=== PATIENT | female | born 1985 | race Caucasian/White ===

== ENCOUNTER 2016-10-26 10:24 | Emergency (ER) | payer OTHER ==
[2016-10-26 10:34] VITALS: PULSE 77; TEMP 98.1
--- NOTE | 2016-10-26 10:47 | ED PDOC ---
Arrival/HPI - General Chief Complaint: Male Genitourinary Time Seen by Provider: 10/26/16 10:26 Historian: Patient - History of Present Illness Narrative History of Present Illness (Text): 10/26/16 10:38 31 y/o female, pmh including ectopic , nkda, LMP 08/2016, c/o absent period x 1 month with possible with no pain. Pt. stated that she's been feeling nauseous with no vomiting this week along with delayed period , concerning that she is but not sure, no vaginal bleeding or discharge , no pelvic or abdominal pain, no headache or night sweat, no urinary symptoms, no weight loss, no numbness or tingling, no other medical or psychological complaints. Past Medical History - Provider Review Nursing Documentation Reviewed: Yes - Infectious Disease Hx of Infectious Diseases: None - Reproductive Menopause: No - Psychiatric Hx Substance Use: No - Anesthesia Hx Anesthesia: No Family/Social History - Physician Review Nursing Documentation Reviewed: Yes Family/Social History: Unknown Family HX Smoking Status: Current Some Days Smoker Hx Alcohol Use: No Hx Substance Use: No Allergies/Home Meds Allergies/Adverse Reactions: Allergies No Known Allergies Allergy (Verified 10/26/16 10:34) Home Medications: Home Meds Medication Instructions Recorded Confirmed No Known Home Med 10/26/16 10/26/16 Review of Systems - Review of Systems Constitutional: absent: Fatigue, Fevers Eyes: absent: Vision Changes ENT: absent: Hearing Changes, Rhinorrhea Respiratory: absent: Cough Cardiovascular: absent: Chest Pain Gastrointestinal: Nausea. absent: Abdominal Pain, Vomiting Genitourinary Female: absent: Dysuria, Frequency, Hematuria, Urine Output Changes, Vaginal Bleeding, Vaginal Discharge, Other Musculoskeletal: absent: Arthralgias, Back Pain, Neck Pain, Joint Swelling, Myalgias, Other Skin: absent: Rash, Pruritis, Skin Lesions, Laceration, Abscess, Ulcer, Cellulitis, Other Physical Exam Vital Signs Reviewed: Yes Vital Signs Temp Pulse Resp BP Pulse Ox 10/26/16 11:04 98.1 F 77 18 136/75 99 10/26/16 10:30 98.1 F 77 16 100 Temperature: Afebrile Blood Pressure: Normal Pulse: Regular Respiratory Rate: Normal Appearance: Positive for: Well-Appearing, Non-Toxic, Comfortable Pain Distress: None Mental Status: Positive for: Alert and Oriented X 3 - Systems Exam Head: Present: Atraumatic, Normocephalic Pupils: Present: PERRL Extroacular Muscles: Present: EOMI Conjunctiva: Present: Normal Mouth: Present: Moist Mucous Membranes Neck: Present: Normal Range of Motion Respiratory/Chest: Present: Clear to Auscultation, Good Air Exchange. No: Respiratory Distress, Accessory Muscle Use Cardiovascular: Present: Regular Rate and Rhythm, Normal S1, S2. No: Murmurs Abdomen: Present: Normal Bowel Sounds. No: Tenderness, Distention, Peritoneal Signs, Rebound, Guarding Back: Present: Normal Inspection. No: CVA Tenderness, Midline Tenderness, Paraspinal Tenderness Upper Extremity: Present: Normal Inspection. No: Cyanosis, Edema Lower Extremity: Present: Normal Inspection. No: Edema Neurological: Present: GCS=15, Speech Normal, Motor Func Grossly Intact, Gait Normal, Memory Normal Skin: Present: Warm, Dry, Normal Color. No: Rashes Psychiatric: Present: Alert, Oriented x 3, Normal Insight, Normal Concentration Medical Decision Making ED Course and Treatment: 10/26/16 10:48 -urine hcg positive -UA ordered and wait for the response. 10/26/16 11:06 -UA show no UTI -Pt. has no pain or discomfort. -Discharge home with education on stay hydrated, eat saltine cracker as needed for nausea, you are and nauseous is part of the symptom, stay hydrated , follow up with your own pmd and obgyn within 2 days, return to the ER for any new or worsening signs or symptoms. 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 Disposition/Present on Arrival - Present on Arrival Any Indicators Present on Arrival: No History of DVT/PE: No History of Uncontrolled Diabetes: No Urinary Catheter: No History of Decub. Ulcer: No History Surgical Site Infection Following: None - Disposition Have Diagnosis and Disposition been Completed?: Yes Diagnosis: Disposition: HOME/ ROUTINE Disposition Time: 10:49 Patient Plan: Discharge Patient Problems: Current Active Problems Problem Status Diagnosed Acute Condition: GOOD Discharge Instructions (ExitCare): (ED) Print Language: SWAZI Additional Instructions: Discharge home with education on stay hydrated, eat saltine cracker as needed for nausea, you are and nauseous is part of the symptom, stay hydrated , follow up with your own pmd and obgyn within 2 days, return to the ER for any new or worsening signs or symptoms. Referrals: PCP,NO [Primary Care Provider] - Follow up with primary Nat Harris MD [Staff Provider] - Follow up with primary [facility] [place] - Follow up with primary Forms: WORK NOTE
[2016-10-26 11:03] LABS: URINE BILIRUBIN NEGATIVE (NEGATIVE); URINE BLOOD NEGATIVE (NEGATIVE); URINE GLUCOSE (UA) NEGATIVE (NEGATIVE); URINE KETONE NEGATIVE (NEGATIVE); URINE LEUKOCYTE ESTERASE NEGATIVE Leu/uL (NEGATIVE); URINE PROTEIN NEGATIVE mg/dL (<30 mg/dL); URINE UROBILINOGEN 0.2 E.U./dL (<1 E.U./dL)
[2016-10-26 11:04] LABS: URINE APPEARANCE TURBID (CLEAR); URINE COLOR YELLOW (YELLOW)
[2016-10-26 11:05] VITALS: O2SAT 99
[2016-10-26 11:20] VITALS: BP 110/67; RESP 17
== END 2016-10-26 11:19 | disposition home or self-care (01) ==
LOC: ED 10:24
DX: Z33.1 Pregnant state, incidental (principal)